=== PATIENT | female | born 1990 | race Caucasian/White ===

== ENCOUNTER → 2016-04-23 | Outpatient (CLI) | payer OTHER | LOC: FIMAGING 10:40 | PROVIDERS: ATTEND Physician Assistant Medical | DX: R11.0 Nausea (principal) ==

== ENCOUNTER → 2016-09-14 | Outpatient (CLI) | payer OTHER | LOC: FIMAGING 10:09 | PROVIDERS: ATTEND Advanced Practice Midwife | DX: Z34.02 Encounter for supervision of normal first pregnancy, second trimester (principal); Z3A.21 21 weeks gestation of pregnancy ==

== ENCOUNTER 2017-01-10 20:56 | Observation (INO) | payer OTHER ==
[2017-01-10 22:01] LABS: COLOR PALE YELLOW; LEUKOCYTE ESTERASE,URINE NEGATIVE (NEGATIVE); NITRITE,URINE NEGATIVE (NEGATIVE)
[2017-01-10 22:08] LABS: BACTERIA TRACE /hpf (NONE SEEN); MUCUS TRACE /lpf (NONE-1+)
[2017-01-10 22:44] LABS: ADD DIFF? NO; ADD MORPH? NO; ADD SCAN? NO; ATYPICAL LYMPHOCYTE FLAG 0 (0-99); FRAGMENT RBC FLAG 0 (0-99); HEMATOCRIT 32.1 % (38.0-47.0); HEMOGLOBIN 10.4 g/dL (12.6-16.3); LEFT SHIFT FLG 0 (0-99); LIPEMIA HEMOLYSIS FLAG 80 (0-99); MEAN CELL HEMOGLOBIN 25.1 pg (27.9-34.1); MEAN CELL HEMOGLOBIN CONCENTR. 32.4 g/dL (32.4-36.7); MEAN CELL VOLUME 77.5 fL (81.5-99.8); MEAN PLATELET VOLUME 8.5 fL (8.7-11.7); PLATELET CLUMPS FLAG 0 (0-99); PLATELET COUNT 168 10^3/uL (150-400); RED BLOOD CELL COUNT 4.14 10^6/uL (4.18-5.33); RED CELL DISTRIBUTION WIDTH 14.3 % (11.5-15.2)
== END 2017-01-11 00:55 | disposition home or self-care (01) ==
LOC: FLD 20:56
PROVIDERS: ADMIT Advanced Practice Midwife; ATTEND Advanced Practice Midwife
DX: O23.43 Unspecified infection of urinary tract in pregnancy, third trimester (principal); Z3A.38 38 weeks gestation of pregnancy
CPT/HCPCS: 76770; G0378

== ENCOUNTER 2017-01-29 06:00 | Inpatient (IN) | payer OTHER ==
[2017-01-29] MEDS ORDERED: EPSOM SALT 454 GM TP PRN (06:32)
[2017-01-29] MEDS ORDERED: TERBUTALINE SULFATE 1 MG/ML VIAL IV PRN (06:32)
[2017-01-29] MEDS ORDERED: OLIVE OIL 118 ML BTL MISC PRN (06:32)
[2017-01-29] MEDS ORDERED: LR 1,000 ML IV PRN (06:32)
[2017-01-29] MEDS ORDERED: OXYTOCIN 20 UNIT in LR 1,000 ML IV PRN (06:32)
[2017-01-29 07:02] LABS: % IMMATURE GRANULYOCYTES 0.8 % (0.0-1.1); ABSOLUTE IMMATURE GRANULOCYTES 0.08 10^3/uL (0.00-0.10); ADD DIFF? NO; ADD MORPH? NO; ADD SCAN? NO; ATYPICAL LYMPHOCYTE FLAG 0 (0-99); FRAGMENT RBC FLAG 0 (0-99); HEMATOCRIT 34.8 % (38.0-47.0); HEMOGLOBIN 11.4 g/dL (12.6-16.3); LEFT SHIFT FLG 0 (0-99); LIPEMIA HEMOLYSIS FLAG 80 (0-99); MEAN CELL HEMOGLOBIN 25.1 pg (27.9-34.1); MEAN CELL HEMOGLOBIN CONCENTR. 32.8 g/dL (32.4-36.7); MEAN CELL VOLUME 76.7 fL (81.5-99.8); MEAN PLATELET VOLUME 8.7 fL (8.7-11.7); PLATELET CLUMPS FLAG 0 (0-99); PLATELET COUNT 194 10^3/uL (150-400); RED BLOOD CELL COUNT 4.54 10^6/uL (4.18-5.33); RED CELL DISTRIBUTION WIDTH 15.2 % (11.5-15.2)
[2017-01-29] MEDS ORDERED: OXYTOCIN 10 UNIT/ML VIAL ONE (08:23)
[2017-01-29] MEDS ORDERED: OXYTOCIN/LR *STANDARD DOSE PROTOCOL IV SCH (08:30)
--- NOTE | 2017-01-29 11:59 | PDGENHP ---
History and Physical History and Physical: CARE: [facility] HPI: Patient is a26yo that presents to L&D for IOL 2/2 postdates and polyhydramnios. She denies any regular contractions, LOF, VB. She reports +FM. EDC: 01/22/2017 which is based on Ultrasound at 8-5 weeks. Her is complicated by: JOHNSON @31wks, Rh Negative- declined rhogam, low BMI Review of Systems: Constitutional: Denies any fever, chills, or fatigue HEENT: denies any visual changes, difficulty swallowing, hearing loss Cardiovascular: Denies any chest pain, palpitations, leg swelling Respiratory: denies any cough, wheezing, or shortness of breathe GI: Denies any nausea, vomiting, diarrhea, constipation : denies any dysuria, urgency, frequency, vaginal bleeding Musculoskeletal: denies any muscle or bone pain Skin: denies any rashes Neuro: denies any headache, seizures, lightheadedness, dizziness, or loss of consciousness, +anxiety Psychiatric: denies any depression, anxiety, or SI/HI thoughts HISTORY: Previous OB history: G1 Past medical history: anxiety/depression- no meds Past surgical history: oral surgery, bone graft/implants Medications: PNV Allergies (list reaction): latex LABS: Rh: B Neg ABS: Neg Rubella: Immune HbsAg: NR HIV: NR VDRL: NR 1hr: 61 GC: Neg Chlamydia: Neg Pap: Normal GBS: neg BMI: (prepreg) 17 PHYSICAL EXAM: Constitutional: WN, A&Ox3, thin HEENT: normocephalic atraumatic, supple Heart: RRR, no murmur Chest: CTA-B Abdomen: Soft, nontender, gravid SVE: 460/-1 (from office exam) Extremities: no edema, negative homans sign Neuro: grossly normal Psych: normal affect assessment: Reassuring FHTs, baseline 130 +accels, no decels, moderate variability Contractions: toco q irritability noted Assessment: 1) 26 yo with IUP@ 41wks 2) IOL 3) GBS negative 4) Cat 1 FHR tracing 5) polyhydramnios 6) EFW 8#11 Plan: 1) Admit to L&D 2) start pitocin 3) cont EFM 4) AROM PRN 5) anticipate
--- NOTE | 2017-01-29 12:09 | OBPROG ---
Labor Progress Note Assessment/Plan: Assessment: [id number] with IUP@ 41wks IOL with pitocin polyhydramnios GBS Neg EFW 8#11 Cat 1 FHR tracing AROM - clear Plan: cont pitocin pain management PRN reassess 2h/PRN anticipate 01/29/17 11:59 Subjective/Intrapartum Course: 01/29/17 12:00 Pt doing well, she is rating pain with contractions 4/10. She has family and FOB @ BS. She declines pain medication at this time. She is reporting some nausea, desires medication for relief. Objective: 01/29/17 06:50 Patient ABO/Rh B NEGATIVE 01/29/17 06:50 - SVE Dilation (cm): 4 Station: -1 Membranes: AROM Amniotic Fluid Color: Clear - Contraction Pattern Assessment Current Contraction Pattern: Irregular - FHR Assessment Garcia FHR (bpm): 130 FHR Pattern Variability: Moderate FHR Category: 1 - Procedures Non-surgical Procedures: Amniotomy - Physical Exam General Appearance: WD/WN, alert, no apparent distress Respiratory: normal breath sounds Cardiac/Chest: regular rate, rhythm Abdomen: non-tender, soft Extremities: non-tender Skin: normal color, warm/dry Neuro/Psych: alert, normal mood/affect, oriented x 3 Oxytocin Orders Assessment - Pre-Induction/Augmentation Assessment Presentation: Vertex Gestational Age: 41 week(s) and 3 day(s) Estimated Weight: 3087-4428 Current Sterile Vaginal Exam (SVE): 4/60/-1 Current Contraction Pattern: Regular - Rodriguez's Score Dilation: 3-4cm Effacement: 60-70 Station: -1,0 Cervix: Medium Cervix Position: Mid Rodriguez Score Total: 8 - Induction/Augmentation Consent Risks/Benefits of Procedure Reviewed/Pt Agrees to Proceed: Yes ICD10 Worksheet Patient Problems: Problems Problem Status Onset Encounter for induction of labor Acute Polyhydramnios affecting Acute - ICD10 Problem Qualifiers (1) Polyhydramnios affecting (2) Encounter for induction of labor
[2017-01-29] MEDS: ONDANSETRON 4 MG/2 ML VIAL IVP PRN ×2 (12:39→16:48)
[2017-01-29] MEDS ORDERED: fentaNYL 100 MCG/2 ML INJ ONE ×2 (14:01→14:09)
[2017-01-29] MEDS ORDERED: BUPIVACAINE 0.25% 30 ML SDV ONE (14:01)
[2017-01-29] MEDS ORDERED: fentaNYL 2MCG/ML/BUP 0.1% RTU 100 ML BAG EP ONE (14:01)
[2017-01-29] MEDS ORDERED: PHENYLEPHRINE HCL 100 MCG/ML SYR ONE (14:01)
--- NOTE | 2017-01-29 15:10 | PREANESOB ---
Obstetric Pre-Anesthesia Info - General Info Proposed Procedure: Labor and delivery with pitocin. : 1 Para: 0 DILSHAD: 01/19/17 Gestational Age: 41 week(s) and 3 day(s) - Info Status: Postmature Monitors: External FHR Baseline (bpm): 120 FHR Pattern: Reassuring - Labor Status Cervical Dilation per last OB SVE: 4 Station per last OB SVE: -1 Amniotic Fluid Color: Clear Pitocin: In Use Indications for Labor Analgesia: Induction of Labor, Pain Control Labor Epidural: Proposed Anesthesia ROS: Prior general anesthesia. Allergies/Adverse Reactions: Allergy/AdvReac Type Severity Reaction Status Date / Time Latex, Natural Rubber Allergy Mild Verified 01/29/17 06:49 latex Allergy Verified 01/10/17 21:26 Visit Medications: Generic Name Dose Route Start Last Admin Trade Name Freq PRN Reason Stop Dose Admin Lactated Ringer's 1,000 mls @ 0 mls/hr 01/29/17 06:32 Lr IV 01/30/17 06:31 PRN PRN SEE PROTOCOL CONDITIONS Protocol Per Protocol Oxytocin 20 unit/ Lactated 1,002 mls @ 150 mls/hr 01/29/17 06:32 Ringer's IV PRN PRN Post- bleeding Oxytocin 30 unit/ Lactated 503 mls @ 0 mls/hr 01/29/17 08:30 Ringer's IV 07/28/17 08:29 CONT FIORDALIZA Protocol Per Protocol Ibuprofen 600 mg 01/29/17 06:32 Motrin PO 07/28/17 06:31 Q6HRS PRN post , inflammation Magnesium Sulfate 454 gm 01/29/17 06:32 Epsom Salt TP 07/28/17 06:31 Q1H PRN perineal discomfort [place] Oil 118 ml 01/29/17 06:32 Sweet Oil MISC 07/28/17 06:31 ONCE PRN perineal massage Ondansetron HCl 4 mg 01/29/17 11:47 01/29/17 12:39 Zofran IVP 07/28/17 11:46 4 mg Q4HRS PRN Administration Nausea/Vomiting, Can't Take PO Terbutaline Sulfate 0.25 mg 01/29/17 06:32 Brethine IV 07/28/17 06:31 ONCE PRN Tachysystole Discontinued Medications Generic Name Dose Route Start Last Admin Trade Name Freq PRN Reason Stop Dose Admin Bupivacaine HCl Confirm 01/29/17 14:01 Sensorcaine 0.25% Sdv Administered 01/29/17 14:02 Dose 30 ml .ROUTE .STK-MED ONE Fentanyl Confirm 01/29/17 14:01 Sublimaze Administered 01/29/17 14:02 Dose 100 mcg .ROUTE .STK-MED ONE Fentanyl Confirm 01/29/17 14:09 Sublimaze Administered 01/29/17 14:10 Dose 100 mcg .ROUTE .STK-MED ONE Fentanyl/Bupivacaine HCl Confirm 01/29/17 14:01 Fentanyl/Bupivacaine/Ns 2 Mcg/Ml 0.1% (Premix Administered 01/29/17 14:02 Dose 100 ml EP .STK-MED ONE Oxytocin Confirm 01/29/17 08:23 Pitocin Administered 01/29/17 08:24 Dose 30 unit .ROUTE .STK-MED ONE Phenylephrine HCl Confirm 01/29/17 14:01 Neosynephrine Administered 01/29/17 14:02 Dose 1,000 mcg .ROUTE .STK-MED ONE - Anesthesia History Response to Local Anesthetics: Normal Anesthesia & Operative History: No Prior Problems Family Anesthesia History: Negative - Social History Substance Use/Abuse: Denies - Vital Signs Blood Pressure: 124/69 Heart Rate: 82 Height/Weight (Nursing): Height 160.02 cm Weight 53.07 kg - Focused Exam Neck exam: FROM Mallampati Score: Class 1 Mouth exam: normal dental/mouth exam Pulmonary: no respiratory distress Cardiovascular: regular rate and rhythym Labs: 01/29/17 06:50 Patient ABO/Rh B NEGATIVE 01/29/17 06:50 - Plan Consent Signed and on Chart: Yes Patient/Guardian Understands and Agrees to Plan: Yes Urgent/Emergent Case: Helenamckenzie downeyelvia completed preop but documented later for safe timely pt care
[2017-01-29] MEDS ORDERED: PHENYLEPHRINE HCL 100 MCG/ML SYR IVP PRN (15:18)
--- NOTE | 2017-01-29 15:18 | POSTANESTH ---
Post Anesthetic Evaluation Cardiovascular Status: Normal, Stable, Similar to Pre-Op Cond Respiratory Status: Normal, Stable, Similar to Pre-op Cond. Level of Consciousness/Mental Status: Can Participate in Eval, Alert and Oriented Pain Control: Adequate, Prn Tx Ordered Nausea/Vomiting Control: Adequate, Prn Tx Ordered Complications Possibly Related to Anesthesia: None Noted
[2017-01-29] MEDS ORDERED: fentaNYL 2MCG/ML/BUP 0.1% RTU 100 ML EP SCH (15:30)
[2017-01-29] MEDS ORDERED: LR 500 ML IV SCH (15:30)
[2017-01-29] MEDS ORDERED: AMMONIA AROMATIC 1 EACH AMP IH ONE (18:28)
[2017-01-29] MEDS ORDERED: MISOPROSTOL 200 MCG TAB ONE (18:28)
[2017-01-29] MEDS ORDERED: OLIVE OIL 118 ML BTL ONE (18:28)
[2017-01-29] MEDS ORDERED: LIDOCAINE 1% 300 MG/30 ML SDV ONE (18:28)
[2017-01-29] MEDS ORDERED: ACETAMINOPHEN 500 MG TAB PO PRN (19:58)
--- NOTE | 2017-01-29 20:02 | OBPROG ---
Labor Progress Note Assessment/Plan: Assessment: [id number] with IUP@ 41wks IOL with pitocin polyhydramnios GBS Neg EFW 8#11 Cat 1 FHR tracing AROM - clear Maternal temp Plan: cont pitocin tylenol PO cont pushing anticipate 01/29/17 11:59 01/29/17 20:01 Subjective/Intrapartum Course: 01/29/17 12:00 Pt doing well, she is rating pain with contractions 4/10. She has family and FOB @ BS. She declines pain medication at this time. She is reporting some nausea, desires medication for relief. 01/29/17 20:00 pt doing well, she is having intermittent pressure with contractions. She only has intermittent urge to push. Epidural has been turned off. Family/FOB @ BS, supportive. Objective: 01/29/17 06:50 Patient ABO/Rh B NEGATIVE 01/29/17 06:50 Temp Pulse Resp BP Pulse Ox 82 124/69 H 01/29/17 15:17 01/29/17 15:17 Temp 101 - SVE Dilation (cm): 10 Effacement (%): 100 Station: +1 Membranes: AROM Amniotic Fluid Color: Clear - Contraction Pattern Assessment Current Contraction Pattern: Regular - FHR Assessment Garcia FHR (bpm): 120 FHR Pattern Variability: Moderate FHR Category: 1 - Procedures Non-surgical Procedures: Amniotomy - Physical Exam Estimated Weight: 0496-0050 Oxytocin Orders Assessment - Pre-Induction/Augmentation Assessment Presentation: Vertex Gestational Age: 41 week(s) and 3 day(s) Estimated Weight: 6016-8254 ICD10 Worksheet Patient Problems: Problems Problem Status Onset Encounter for induction of labor Acute Polyhydramnios affecting Acute - ICD10 Problem Qualifiers (1) Polyhydramnios affecting (2) Encounter for induction of labor
[2017-01-29] MEDS ORDERED: GENTAMICIN 80 MG/NACL 100 ML IV SCH (20:30)
[2017-01-29] MEDS: IBUPROFEN 600 MG TAB PO PRN (22:18)
[2017-01-29] MEDS ORDERED: SIMETHICONE 80 MG TAB CHEW PO PRN (22:32)
[2017-01-29] MEDS ORDERED: HYDROCORTISONE 0.5% CREAM TP PRN (22:32)
--- NOTE | 2017-01-29 22:37 | OBDEL ---
Info Type: Vaginal Presentation at Delivery: Vertex L&D Analgesia/Anesthesia Type: Epidural, Local GBS+: No Intrapartum Medications: Generic Name Dose Route Start Last Admin Trade Name Essence PRN Reason Stop Dose Admin Acetaminophen 1,000 mg 01/29/17 19:58 01/29/17 20:07 Tylenol PO 07/28/17 19:57 1,000 mg Q6HRS PRN Administration Pain, Mild/Fever, Can Take PO Ibuprofen 600 mg 01/29/17 06:32 01/29/17 22:18 Motrin PO 07/28/17 06:31 600 mg Q6HRS PRN Administration post , inflammation Ondansetron HCl 4 mg 01/29/17 11:47 01/29/17 16:48 Zofran IVP 07/28/17 11:46 4 mg Q4HRS PRN Administration Nausea/Vomiting, Can't Take PO - Hospital Course Intrapartum: 01/29/17 12:00 Pt doing well, she is rating pain with contractions 4/10. She has family and FOB @ BS. She declines pain medication at this time. She is reporting some nausea, desires medication for relief. 01/29/17 20:00 pt doing well, she is having intermittent pressure with contractions. She only has intermittent urge to push. Epidural has been turned off. Family/FOB @ BS, supportive. Indications for Delivery: Postterm Favorable Cervix Vaginal Delivery - Delivery Provider Delivery Physician/CNM: Adeline Dorantes - Labor and Delivery Onset of Contractions Date: 01/29/17 Onset of Contractions Time: 09:30 Onset of Contractions Type: Induced Rupture of Membranes Date: 01/29/17 Rupture of Membranes Time: 11:50 Rupture of Membranes Type: Artificial Amniotic Fluid Color: Clear Dilation Complete Date: 01/29/17 Dilation Complete Time: 18:25 Placenta Delivery Date: 01/29/17 Placenta Delivery Time: 21:55 Total Hours of Labor: 12 Non-surgical Procedures: Amniotomy Laceration: 1st Degree Repair: 3-0, Vicryl Vaginal Sponge Count Correct: Yes Vaginal Needle Count Correct: Yes Vaginal Sweep Performed: Yes EBL: 200 Delivery Events: None - Medications Labor Augmentation/Induction Methods Used: Pitocin Labor Augmentation/Induction Indication: Post Dates, Other (Specify) ( polyhydramnios) Data DILSHAD: 01/19/17 Gestational Age: 41 week(s) and 3 day(s) Garcia Delivery Date: 01/29/17 Delivery Time: 21:49 Sex of : Male Score (1 Min): 7 Score (5 Min): 9 ICD10 Worksheet Patient Problems: Problems Problem Status Onset Encounter for induction of labor Acute First degree perineal laceration during delivery Acute Polyhydramnios affecting Acute Rh negative status during Acute (spontaneous vaginal delivery) Acute - ICD10 Problem Qualifiers (1) Polyhydramnios affecting (2) Encounter for induction of labor (3) First degree perineal laceration during delivery (4) (spontaneous vaginal delivery) (5) Rh negative status during
[2017-01-30] MEDS ORDERED: AMPICILLIN SODIUM 2 GM in NS 100 ML IV SCH
[2017-01-30] MEDS: IBUPROFEN 600 MG TAB PO PRN ×4 (04:11→22:47)
[2017-01-30] MEDS: HYDROCODONE/APAP 5/325 TAB PO PRN ×4 (08:24→20:02)
[2017-01-30] MEDS: DOCUSATE SODIUM 100 MG CAP PO PRN ×2 (09:50→20:02)
[2017-01-30] MEDS ORDERED: IRON POLYSAC/IRON HEME 28 MG TAB PO SCH (12:00)
--- NOTE | 2017-01-30 12:52 | OBPP ---
Progress Note Assessment/Plan: Assessment: PPD 1 s/p anemia Rh neg and baby pos Plan: routine care, iron daily, strongly rec Rhogam 01/30/17 12:48 Subjective/ Course: 01/30/17 12:49 Pt very uncomfortable - perineum sore. Has been using ice and I rec sitz bath. baby has been trying to latch. bld has lessened. urinating fine. pt is tired and feeling quite fragile and complaining about a lot. discussed the reasoning behind refusing the Rhogam -- I reviewed it is placing any subsequent pregnancies at risk of severe anemia/hemolytic disease/. 01/30/17 12:52 Objective: 01/29/17 06:50 Patient ABO/Rh B NEGATIVE 01/30/17 00:55 Temp Pulse Resp BP Pulse Ox 36.2 C 68 16 101/74 95 01/30/17 09:44 01/30/17 09:44 01/30/17 09:44 01/30/17 09:44 01/30/17 09:44 Uterine Position/Fundal Height: Umbilicus -1 Uterine Tone: Firm Physical Exam - Physical Exam Abdomen: non-tender, soft Extremities: non-tender, pedal edema (none) Skin: normal color, warm/dry Neuro/Psych: alert, normal mood/affect
[2017-01-31] MEDS: HYDROCODONE/APAP 5/325 TAB PO PRN (01:21)
[2017-01-31] MEDS: IBUPROFEN 600 MG TAB PO PRN ×2 (05:04→10:53)
[2017-01-31] MEDS: DOCUSATE SODIUM 100 MG CAP PO PRN (10:55)
[2017-01-31 10:56] VITALS: BP 105/63; PULSE 85; RESP 18; TEMP 98.8; O2SAT 96
--- NOTE | 2017-01-31 11:20 | OBPP ---
Progress Note Assessment/Plan: Assessment: 26 y/o PPD #2 s/p IOL secondary to post dates and polyhydramnios. Plan: D/c home today with Ibuprofen and [place]. We discussed bowel regimen to improve hemorrhoids and pain. Follow-up @ [facility] 4 and 6 weeks. 01/31/17 11:20 Subjective/ Course: 01/30/17 12:49 Pt very uncomfortable - perineum sore. Has been using ice and I rec sitz bath. baby has been trying to latch. bld has lessened. urinating fine. pt is tired and feeling quite fragile and complaining about a lot. discussed the reasoning behind refusing the Rhogam -- I reviewed it is placing any subsequent pregnancies at risk of severe anemia/hemolytic disease/. 01/30/17 12:52 01/31/17 11:14 Pt is doing better this am. She has better pain control but is using Ibuprofen and [place], ice packs and hemorrhoid cream. She has min lochia and is ambulating and voiding without difficulty. They are working on breast feeding with nipple morrissey and pumping and they have a plan of care for feeding when they get home. Objective: 01/29/17 06:50 Patient ABO/Rh B NEGATIVE 01/30/17 00:55 Temp Pulse Resp BP Pulse Ox 37.1 C 85 18 105/63 96 01/31/17 10:00 01/31/17 10:00 01/31/17 10:00 01/31/17 10:00 01/31/17 10:00 Uterine Position/Fundal Height: Umbilicus -2 Uterine Tone: Firm Physical Exam - Physical Exam Neck: non-tender, full range of motion, supple Respiratory: chest non-tender, lungs clear, normal breath sounds Cardiac/Chest: regular rate, rhythm Abdomen: normal bowel sounds Extremities: swelling (no), Chang's sign (neg)
--- NOTE | 2017-01-31 11:22 | OBDEL ---
Info Type: Vaginal Presentation at Delivery: Vertex L&D Analgesia/Anesthesia Type: Epidural, Local, Nitrous GBS+: No Intrapartum Medications: Generic Name Dose Route Start Last Admin Trade Name Essence PRN Reason Stop Dose Admin Acetaminophen 1,000 mg 01/29/17 19:58 01/29/17 20:07 Tylenol PO 07/28/17 19:57 1,000 mg Q6HRS PRN Administration Pain, Mild/Fever, Can Take PO Hydrocodone Bitart/Acetaminophen 1 - 2 tab 01/29/17 22:32 01/31/17 01:21 [place] 5/325 PO 02/08/17 22:31 1 tab Q4HRS PRN Administration Pain, Moderate Docusate Sodium 100 mg 01/29/17 22:32 01/31/17 10:55 Colace PO 07/28/17 22:31 100 mg BID PRN Administration Constipation Hydrocortisone 1 le 01/29/17 22:32 01/30/17 18:39 Hydrocortisone 0.5% TP 07/28/17 22:31 1 tube QID PRN Administration Hemorrhoids Ibuprofen 600 mg 01/29/17 06:32 01/31/17 10:53 Motrin PO 07/28/17 06:31 600 mg Q6HRS PRN Administration post , inflammation Ondansetron HCl 4 mg 01/29/17 11:47 01/29/17 16:48 Zofran IVP 07/28/17 11:46 4 mg Q4HRS PRN Administration Nausea/Vomiting, Can't Take PO Polysaccharide Iron Complex 28 mg 01/30/17 12:00 01/30/17 16:54 Bifera PO 07/29/17 11:59 28 mg DAILY FIORDALIZA Administration Discontinued Medications Generic Name Dose Route Start Last Admin Trade Name Essence PRN Reason Stop Dose Admin Ampicillin Sodium 2 gm/ Sodium 110 mls @ 220 mls/hr 01/30/17 00:00 01/30/17 02:25 Chloride IV 03/01/17 00:00 Not Given Q6HRS FIORDALIZA Protocol Gentamicin Sulfate/Sodium Chloride 100 mls @ 100 mls/hr 01/29/17 20:30 23:58 Gentamicin 80 Mg (Premix) IV 02/28/17 20:29 Not Given Q8H FIORDALIZA Protocol - Hospital Course Intrapartum: 01/29/17 12:00 Pt doing well, she is rating pain with contractions 4/10. She has family and FOB @ BS. She declines pain medication at this time. She is reporting some nausea, desires medication for relief. 01/29/17 20:00 pt doing well, she is having intermittent pressure with contractions. She only has intermittent urge to push. Epidural has been turned off. Family/FOB @ BS, supportive. Indications for Delivery: Postterm Favorable Cervix Vaginal Delivery - Delivery Provider Delivery Physician/CNM: Adeline Dorantes - Labor and Delivery Onset of Contractions Date: 01/29/17 Onset of Contractions Time: 09:30 Rupture of Membranes Date: 01/29/17 Rupture of Membranes Time: 11:50 Rupture of Membranes Type: Artificial Amniotic Fluid Color: Clear Dilation Complete Date: 01/29/17 Dilation Complete Time: 18:25 Placenta Delivery Date: 01/29/17 Placenta Delivery Time: 21:55 Total Hours of Labor: 12 Non-surgical Procedures: Amniotomy Laceration: 1st Degree Repair: 3-0, Vicryl Vaginal Sponge Count Correct: Yes Vaginal Needle Count Correct: Yes EBL: 200 Delivery Events: None - Medications Labor Augmentation/Induction Methods Used: Pitocin Labor Augmentation/Induction Indication: Post Dates, Other (Specify) ( polyhydramnios) Data DILSHAD: 01/19/17 Gestational Age: 41 week(s) and 5 day(s) Garcia Delivery Date: 01/29/17 Delivery Time: 21:49 Sex of : Male Score (1 Min): 8 Score (5 Min): 9 ICD10 Worksheet Patient Problems: Problems Problem Status Onset Encounter for induction of labor Acute First degree perineal laceration during delivery Acute Polyhydramnios affecting Acute Rh negative status during Acute (spontaneous vaginal delivery) Acute
== END 2017-01-31 16:15 | disposition home or self-care (01) | DRG 775 ==
LOC: FLD 06:22 → FOB 01-30 00:17
PROVIDERS: ADMIT Obstetrics & Gynecology; ATTEND Obstetrics & Gynecology
DX: O40.3XX0 Polyhydramnios, third trimester, not applicable or unspecified (principal); O48.0 Post-term pregnancy; O70.0 First degree perineal laceration during delivery; O87.2 Hemorrhoids in the puerperium; Z3A.41 41 weeks gestation of pregnancy; Z37.0 Single live birth; Z91.040 Latex allergy status
CPT/HCPCS: J0290; J2370; J2405; J3010

== ENCOUNTER → 2017-02-24 | Outpatient (CLI) | payer OTHER | LOC: FLACT 10:11 | PROVIDERS: ATTEND Advanced Practice Midwife | DX: O92.5 Suppressed lactation (principal) | CPT/HCPCS: G0463 ==